=== PATIENT | male | born 1930 | race Caucasian/White ===

== ENCOUNTER → 2017-12-01 | Outpatient (CLI) | payer OTHER, MEDICARE | LOC: BMCIMAGING 11:15 | PROVIDERS: ATTEND Orthopaedic Surgery Hand Surgery | DX: M79.645 Pain in left finger(s) (principal); M18.12 Unilateral primary osteoarthritis of first carpometacarpal joint, left hand; M25.561 Pain in right knee; M17.11 Unilateral primary osteoarthritis, right knee ==

== ENCOUNTER → 2018-06-14 | Outpatient (CLI) | payer OTHER, MEDICARE | LOC: BHFA 14:00 | PROVIDERS: ATTEND Internal Medicine Cardiovascular Disease | DX: R55 Syncope and collapse (principal); R60.9 Edema, unspecified ==

== ENCOUNTER 2018-10-05 11:26 | Emergency (ER) | payer OTHER, MEDICARE ==
[2018-10-05 12:31] LABS: PLATELET COUNT 152 10^3/uL (150-400)
--- NOTE | 2018-10-05 13:41 | EDPHY ---
H & P Stated Complaint: c/o lightheadedness/bilat LE weakness/difficulty reading x 2- 2.5 hr this am Time Seen by Provider: 10/05/18 12:55 HPI/ROS: CHIEF COMPLAINT: Dizziness and weakness HISTORY OF PRESENT ILLNESS: 88-year-old male presents with dizziness and weakness. He awoke early this morning and was reading the newspaper. He stood up and walked to the kitchen. He began to feel dizzy and weak. He sat down and the weakness persisted. He was unable to get up off the couch for a couple of hours because of generalized weakness. He also was having trouble reading the newspaper during this time. He now feels almost back to normal. He did not have unilateral weakness. No change in dizziness with head movement or position change. No headache or recent head injury. No recent illness. REVIEW OF SYSTEMS: complete 10 point ROS reviewed and is negative except for the noted elements in the HPI - Medical/Surgical History Hx Asthma: No Hx Chronic Respiratory Disease: No Hx Diabetes: No Hx Cardiac Disease: Yes Hx Renal Disease: No Hx Cirrhosis: No Hx Alcoholism: No Hx HIV/AIDS: No Hx Splenectomy or Spleen Trauma: No Other PMH: bilat LE neuropathy, hyperlipidemia, bph, hypertension, spinal stenosis, R knee replacement, hernia repair, skin ca lesion removed - Social History Smoking Status: Former smoker Alcohol Use: Sober Drug Use: None Additional Social History: Lives at [facility] - Physical Exam Exam: General Appearance: Alert, pleasant Eyes: Pupils equal and round, no conjunctival pallor or injection, able to read clearly, no nystagmus ENT, Mouth: Mucous membranes moist, bilateral cerumen impaction Neck: Normal inspection Respiratory: Lungs are clear to auscultation Cardiovascular: Regular rate and rhythm Gastrointestinal: Abdomen is soft and nontender Neurological: A&O, motor 5/5, sensory grossly intact, cranial nerves 2-12 intact, able to walk with a steady gait Skin: Warm and dry, no rash Extremities: Nontender, no pedal edema Psychiatric: Mood and affect normal Constitutional: Initial Vital Signs Temperature (C) 36.5 C 10/05/18 11:31 Heart Rate 78 10/05/18 11:31 Respiratory Rate 18 10/05/18 11:31 Blood Pressure 129/83 H 10/05/18 11:31 O2 Sat (%) 95 10/05/18 11:31 O2 Delivery Mode Room Air Allergies/Adverse Reactions: No Known Allergies Allergy (Unverified 10/05/18 11:47) Medical Decision Making - Diagnostics EKG Interpretation: EKG interpreted by me reveals normal sinus rhythm, 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 Interpretation: Abnormal EKG Imaging Results: Chest X-Ray 10/05/18 12:56 Impression: 1. No evidence for CHF or pneumonia 2. Diffuse interstitial lung disease, likely chronic. 3. Atherosclerosis. Head CT 10/05/18 13:37 Impression: 1. No acute intracranial abnormality identified. 2. Right cerumen and left indeterminate material filling the external auditory canals. Results called to Dr. Mccarthy at 2:12 PM. General information for patients regarding this examination can be found at [email or web address]. If you have questions or comments about this report, please contact me at [phone] (hospital) or [phone] (cell). Imaging: Discussed imaging studies w/ yard caller Radiologist ED Course/Re-evaluation: This patient presents after an episode of lightheadedness and weakness, now resolved. Laboratory tests are unremarkable stat EKG reveals no evidence of ischemia or dysrhythmia. CT scan of the brain is unremarkable. There is no sign a stroke or TIA, with bilateral weakness, now resolved. Neurologic exam is normal. He was observed in the emergency department and remained asymptomatic throughout. He was able to walk with a steady gait and was not dizzy or weak. Admission discussed for further eval of sx, pt declines, would like to go home. He will be discharged home with his son. Warning signs discussed. Differential Diagnosis: Dizziness including but not limited to peripheral and central causes of vertigo , orthostatic causes including dehydration, and blood loss. - Data Points Laboratory Results: Laboratory Results 10/05/18 11:55 10/05/18 11:55 Departure - Departure Disposition: Home, Routine, Self-Care Clinical Impression: Dizziness Condition: Good Instructions: Dizziness (ED) Additional Instructions: Your evaluation is unremarkable today, including laboratory studies, EKG and CT scan of the brain. Return for recurrent symptoms or any concerns. Referrals: Maikol King DO [Doctor of Osteopathy] - As per Instructions
[2018-10-05 14:56] VITALS: BP 152/77
--- NOTE | 2018-10-05 15:02 | CPEKG ---
Test Reason : OPEN Blood Pressure : / mmHG Vent. Rate : 067 BPM Atrial Rate : 070 BPM P-R Int : 214 ms QRS Dur : 153 ms QT Int : 460 ms P-R-T Axes : 037 -69 -20 degrees QTc Int : 486 ms Sinus rhythm Atrial premature complexes Borderline prolonged MN interval RBBB and LAFB Confirmed by Mi Mccarthy ([id number]) on 10/05/2018 3:02:04 PM Referred By: Confirmed By:Mi Mccarthy
== END 2018-10-05 14:54 | disposition home or self-care (01) ==
LOC: EDUNIT#
DX: R42 Dizziness and giddiness (principal); I10 Essential (primary) hypertension; E78.5 Hyperlipidemia, unspecified; Z87.891 Personal history of nicotine dependence; Z96.651 Presence of right artificial knee joint